=== PATIENT | female | born 1980 | race Caucasian/White ===

== ENCOUNTER 2019-07-01 19:38 | Emergency (ER) | payer MEDICAID ==
[~2019-07-01] VITALS: Ht 162.6 cm; Wt 68.5 kg
[2019-07-01 19:47] VITALS: Ht 162.6 cm; Wt 68.5 kg
[2019-07-01 20:30] VITALS: BP 146/85
== END 2019-07-01 20:30 | disposition home or self-care (01) ==
LOC: ED 19:38
DX: J30.9 Allergic rhinitis, unspecified (principal)

== ENCOUNTER 2019-08-19 18:27 | Emergency (ER) | payer MEDICAID ==
[~2019-08-19] VITALS: Ht 154.9 cm; Wt 68.5 kg
[2019-08-19 18:34] VITALS: Ht 154.9 cm; Wt 68.5 kg
[2019-08-19 19:49] LABS: BASOPHIL % 0.4 % (0-2); PLATELET COUNT 218 x10^3mcL (130-400)
[2019-08-19 19:55] LABS: RED CELL DISTRIBUTION WIDTH 16.5 % (11.5-14.5)
[2019-08-19 19:56] LABS: microscopic required? NO
[2019-08-19 20:02] LABS: urine erythrocyte NEGATIVE (NEGATIVE)
[2019-08-19 20:03] LABS: CALCIUM 9.1 mg/dL (8.5-10.1); CARBON DIOXIDE 26.9 mmol/L (21-32); CHLORIDE SERUM 102 mmol/L (98-107); CREATININE SERUM 0.6 mg/dL (0.6-1.0); GFR1 > 60 mL/min; GLUCOSE SERUM 104 mg/dL (74-106); SODIUM SERUM 138 mmol/L (136-145)
[2019-08-19 20:11] LABS: ALBUMIN 3.9 g/dL (3.4-5.0); ALKALINE PHOSPHATASE 55 U/L (46-116); ALT/SGPT 19 U/L (14-59); AST/SGOT 10 U/L (15-37); BILIRUBIN TOTAL 0.13 mg/dL (0.20-1.00); CHOLESTEROL 162 mg/dL (<200); HDL CHOLESTEROL 59 mg/dL (40-60); TOTAL PROTEIN, SERUM 7.1 g/dL (6.4-8.2)
[2019-08-19 20:16] LABS: MAGNESIUM 2.1 mg/dL (1.8-2.4)
[2019-08-19 22:54] VITALS: BP 120/69
== END 2019-08-19 22:54 | disposition home or self-care (01) ==
LOC: ED 18:27
PROVIDERS: Emergency Medicine
DX: R42 Dizziness and giddiness (principal); R51 Headache; R11.2 Nausea with vomiting, unspecified; E78.00 Pure hypercholesterolemia, unspecified; Z98.890 Other specified postprocedural states
CPT/HCPCS: 82962; J7030; J8597; Q0092